=== PATIENT | female | born 1965 | race Caucasian/White ===

== ENCOUNTER 2023-11-22 09:00 | Emergency (ER) | payer SELFPAY ==
[~2023-11-22] VITALS: Ht 172.7 cm; Wt 70.9 kg
[2023-11-22] MEDS ORDERED: ACE65ERTAB PO (09:17)
[2023-11-22 10:44] LABS: BASO % 0.4 % (0.0-1.0); EOS # 0.1 10^3/uL (0.0-0.5); HEMATOCRIT 42.5 % (36.0-47.0); HEMOGLOBIN 14.1 g/dl (12.0-15.5); LYMPH # 1.5 10^3/uL (1.5-5.0); LYMPH % 19.2 % (24.0-44.0); MEAN CORPUSCULAR HEMOGLOBIN 31.5 pg (27.0-33.0); MEAN CORPUSCULAR HGB CONC 33.2 g/dl (32.0-36.5); MEAN CORPUSCULAR VOLUME 94.9 fl (80.0-96.0); MONO # 0.8 10^3/uL (0.0-0.8); MONO % 9.5 % (2.0-8.0); NEUTROPHILS # 5.5 10^3/uL (1.5-8.5); NEUTROPHILS % 69.6 % (36.0-66.0); PLATELET COUNT, AUTOMATED 247 10^3/uL (150-450); RED BLOOD COUNT 4.48 10^6/uL (4.00-5.40); WHITE BLOOD COUNT 7.9 10^3/uL (4.0-10.0)
[2023-11-22] MEDS: ONDANSETRON 4MG 2ML VIAL IV ONE (10:44)
[2023-11-22] MEDS: NS 1,000 ML IV ONE (10:46)
[2023-11-22] MEDS: MORPHINE 4 MG/ML 1ML VIAL IV ONE ×2 (10:46→13:58)
[2023-11-22 11:07] LABS: LIPASE 32 U/L (12-53)
[2023-11-22 11:10] LABS: ALBUMIN 4.1 G/DL (3.2-5.2); ALKALINE PHOSPHATASE 78 U/L (46-116); ALT/SGPT 21 U/L (7.0-40); AST/SGOT 16 U/L (<34); BILIRUBIN,DIRECT 0.2 MG/DL (<0.4); BILIRUBIN,TOTAL 0.8 MG/DL (0.3-1.2); BLOOD UREA NITROGEN 13 MG/DL (9-23); CALCIUM LEVEL 9.9 MG/DL (8.3-10.6); CARBON DIOXIDE LEVEL 26 MMOL/L (20-31); CHLORIDE LEVEL 108 MMOL/L (98-107); CREATININE FOR GFR 0.76 MG/DL (0.55-1.30); GLOMERULAR FILTRATION RATE > 60.0 (>45); GLUCOSE, FASTING 101 MG/DL (74-106); POTASSIUM SERUM 3.8 MMOL/L (3.5-5.1); SODIUM LEVEL 142 MMOL/L (136-145); TOTAL PROTEIN 6.7 G/DL (5.7-8.2)
[2023-11-22] MEDS ORDERED: ISOVUE-370 76% 100ML VIAL As Ordered ONE (11:15)
[2023-11-22] MEDS: KETOROLAC 30 MG/ML 1ML VIAL IV ONE (13:02)
[2023-11-22] MEDS: BISACODYL 10MG SUPP PR ONE (14:19)
[2023-11-22] MEDS ORDERED: SIME180C25 PO (15:19)
[2023-11-22] MEDS ORDERED: MIRA3350 PO (15:19)
[2023-11-22] MEDS ORDERED: COLA100C5 PO (15:19)
[2023-11-22] MEDS: SIMETHICONE 80MG CHEW TAB PO ONE (15:27)
[2023-11-22] MEDS: MAGNESIUM CITRATE 300ML BTL PO ONE (15:28)
[2023-11-22 15:42] VITALS: BP 118/60; TEMP 98.7; O2SAT 99
== END 2023-11-22 15:45 | disposition home or self-care (01) ==
LOC: M ED 09:00
DX: R10.9 Unspecified abdominal pain (principal); R14.0 Abdominal distension (gaseous); Z88.2 Allergy status to sulfonamides; Z79.1 Long term (current) use of non-steroidal anti-inflammatories (NSAID); Z79.899 Other long term (current) drug therapy
CPT/HCPCS: 74177; 80048; 80076; 81001; 83605; 83690; 85025; 96361; 96374; 96375; 96376; 99284; J1885; J2405; Q9967

== ENCOUNTER → 2023-11-22 | Outpatient (REF) | payer SELFPAY ==
[~2023-11-22] MED LIST: ACE65ERTAB PO; COLA100C5 PO; MIRA3350 PO; SIME180C25 PO
== END ==
LOC: M LAB REF 08:40
PROVIDERS: ATTEND Registered Nurse
DX: R10.31 Right lower quadrant pain (principal)

== ENCOUNTER → 2023-12-03 | Outpatient (REF) | payer SELFPAY | LOC: M WUC 19:16 | PROVIDERS: ATTEND Nurse Practitioner Family | DX: R30.0 Dysuria (principal) ==